=== PATIENT | male | born 1960 | race Caucasian/White ===

== ENCOUNTER → 2021-04-08 | Outpatient (CLI) | payer OTHER ==
[2021-04-08 10:24] LABS: BASO # 0.04 (0.02-0.10); EOS % 3.3 % (0.0-4.0); HEMATOCRIT 47.3 % (42.0-52.0); HEMOGLOBIN 15.9 g/dL (13.5-18.0); LYMPH# 3.39 (1.50-4.00); MEAN CELL VOLUME 92 fl (78-100); MEAN CORPUSCULAR HEMOGLOBIN 31 pg (27-31); MEAN CORPUSCULAR HGB CONC 34 g/dL (33-37); MEAN PLATELET VOLUME 10.5 fl (7.4-10.4); MONO # 0.75 (0.20-0.80); NEU # 4.63 (1.40-6.50); PLATELET COUNT 227 K/mm3 (130-400); RED BLOOD COUNT 5.17 M/mm3 (4.20-5.60); RED CELL DISTRIBUTION WIDTH 12.8 % (11.5-14.5); WHITE BLOOD COUNT 9.2 K/mm3 (4.8-10.8)
[2021-04-08 11:13] LABS: ALBUMIN 4.2 g/dL (3.4-4.8); POTASSIUM 4.3 mmol/L (3.5-5.1)
[2021-04-08 11:14] LABS: CALCIUM 9.8 mg/dL (8.3-10.5)
[2021-04-08 11:16] LABS: TOTAL PROTEIN 7.8 g/dL (6.2-8.1)
[2021-04-08 11:18] LABS: TOTAL BILIRUBIN 0.6 mg/dL (0.2-1.2)
== END ==
LOC: LAB 09:39
PROVIDERS: Internal Medicine
DX: Z00.00 Encounter for general adult medical examination without abnormal findings (principal); R97.20 Elevated prostate specific antigen [PSA]

== ENCOUNTER → 2021-04-17 | Outpatient (CLI) | payer OTHER | LOC: LAB 10:06 | DX: R79.89 Other specified abnormal findings of blood chemistry (principal) ==

== ENCOUNTER → 2021-05-20 | Outpatient (CLI) | payer OTHER | LOC: LAB 11:40 | DX: R94.6 Abnormal results of thyroid function studies (principal) ==